=== PATIENT | male | born 1990 | race Caucasian/White ===

== ENCOUNTER 2025-01-31 12:54 | Outpatient (REF) | payer MEDICAID, SELFPAY | END 2025-01-31 12:55 | disposition home or self-care (01) | LOC: HO.HHCLNP 12:54 | PROVIDERS: Visit Provider Internal Medicine Geriatric Medicine | DX: Z13.89 Encounter for screening for other disorder (principal) | CPT/HCPCS: 87086 ==

== ENCOUNTER 2025-02-14 10:52 | Outpatient (REF) | payer MEDICAID, SELFPAY ==
--- OUTSIDE RECORDS SUMMARY | 2025-02-14 12:24 | XMS_ITS | Clinical Summary ---
Author Organization [employer] Address [address] [place] [address] [address] [place] [address] Care Team Providers Care Special Education Administrator Name Role Phone Kurt Finnegan MD Primary Care Provider Allergies No known active allergies Medications ketoconazole (NIZOral) 2 % cream Apply topically Once per day. 30 g 5 Active ofloxacin (Ocuflox) 0.3 % ophthalmic solution Administer 1 drop into the left eye 4 times daily. 5 mL 5 Active prednisoLONE acetate (Pred-Forte) 1 % ophthalmic suspensionIndi cations:Foreig n body of left cornea, subsequent encounter Administer 1 drop into the left eye 2 times daily. Shake before using. Wait 5 minutes between different drops. 5 mL 5 Active tamsulosin (Flomax) 0.4 MG 24 hr capsuleIndicat ions:Lower urinary tract symptoms (LUTS) Take 1 capsule (0.4 mg) by mouth Once per day. 30 capsule 5 Active erythromycin (Romycin) 5 MG/GM ophthalmic ointment Apply to left eye every 6 (six) hours for 10 days. Apply Amount per Dose: 0.25 inch (~0.5 cm) per dose. 3.5 g 5 01/18/20 25 Discontinu ed(Therapy completed) acetaminophen (Tylenol 8 Hour) 650 MG ER tablet Take 1 tablet (650 mg) by mouth every 8 (eight) hours if needed for mild pain for up to 10 days. Do not crush, chew, or split. 30 tablet 01/20/20 25 Active Problems Problem Noted Date Diagnosed Date Tinea corporis 01/09/2025 Assessment & Plan (01/09/2025 7:07 PM EDT): Area clean and dry, avoid excessive perspiration during the summer months, recommended to cool down with towels or cold water. Use ketoconazole cream once to twice daily to affected areas Follow-up with PCP Left corneal abrasion 01/09/2025 Assessment & Plan (01/09/2025 7:10 PM EDT): Unable to complete eye exam with fluorescein due to patient's significant photophobia and eye pain. We did profuse eye lavage with a sterilized water and recommended to do with 3-4 times daily He will apply ophthalmic antibiotic ointment after each lavage and cover with an eye patch which was provided for him Referral to eye clinic, will call back to see if he can be seen RAVI I gave him small Rx for tramadol to take as needed, no more than 3 times daily and for the next 2 days to help him with eye pain and sleeping. He understand that this is not a long-term solution. Advised to go to ED or to the nearest eye clinic if symptoms do not improve within the next 2 or 3 days. 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 Encounters Date Type Department Care Team Description 02/01/2025 Orders Only [facility] MEDICINE [address] [place] [address] Name, MD Jovanni 01/31/2025 7:40 PM EDT Office Visit [facility] WALK-IN CENTER [address] [place] [address] Name, MD Jovanni Lower urinary tract symptoms (LUTS) (Primary Dx) 01/31/2025 Travel 01/17/2025 10:00 AM EDT Office Visit [facility] OPTOMETRY [address] [place] [address] Phil, Meena, OD Foreign body of left cornea, subsequent encounter (Primary Dx) 01/12/2025 9:00 AM EDT Office Visit [facility] OPTOMETRY [address] [place] [address] Orlando Villarrealn, OD Foreign body of left cornea, subsequent encounter (Primary Dx) 01/12/2025 Travel 01/11/2025 Telephone [facility] CHC MED & PEDS [address] [place], [place] [phone] Kurt Finnegan MD Appointment Request 01/10/2025 10:00 AM EDT Office Visit [facility] OPTOMETRY [address] [place] [address] Orlando Villarrealn, OD Corneal foreign body, left, initial encounter (Primary Dx) 01/10/2025 Travel 01/10/2025 Telephone [facility] WALK-IN CENTER [address] [place] [address] Jackie Kline MD 01/09/2025 6:00 PM EDT Office Visit [facility] WALK-IN CENTER [address] [place] [phone] Jackie Kline MD Abrasion of left cornea, initial encounter (Primary Dx); Tinea corporis 01/09/2025 Travel 11/17/2024 Population Health Risk Score [facility] () [address] [id number] Provider, Population Health Generic from Last 3 Months Social History Tobacco Use Types Packs/Day Years Used Date Smoking Tobacco: Never Passive Smoke Exposure: Never Smokeless Tobacco: Never Tobacco Cessation:Counseling Given: Not Answered Sex and Gender Information Value Date Recorded Sex Assigned at Male 07/06/2022 10:21 AM EDT Legal Sex Male 10:21 AM EDT Gender Identity Male 07/06/2022 10:21 AM EDT Sexual Orientation Straight 01/09/2025 6: 45 PM EDT Last Filed Vital Signs Vital Sign Reading Time Taken Comments Blood Pressure 125/75 01/31/2025 7:32 PM EDT Pulse 78 01/31/2025 7:32 PM EDT Temperature 37.1 ??C (98.8 ??F) 01/09/2025 6:28 PM ED T Respiratory Rate 16 01/31/2025 7:32 PM EDT Oxygen Saturation 97% 01/09/2025 6:28 PM EDT Inhaled Oxygen Concentration - - Weight 90.6 kg (199 lb 12.8 oz) 01/31/2025 7:32 PM EDT Height 175.3 cm (5' 9 ) 01/31/2025 7:32 PM EDT Body Mass Index 29.51 01/31/2025 7:32 PM EDT Plan of Treatment Health Maintenance Due Date Last Done Comments Depression Screening 1991 HIV Screening 1991 SDOH Screening 1991 Disability Screening 1991 Alcohol/Substance Use Screening 2003 Family Planning (PISQ) 2006 Hepatitis C Screening 2009 COVID-19 Vaccine ( season) 2024 10/08/2021, 09/10/2021 Influenza Vaccine (Season Ended) 2025 08/25/2021, 05/22/2013, 05/26/2010, Additional history exists Tobacco Screening 01/18/2026 01/18/2025 DTaP/Tdap/Td Vaccines (9 - Td or Tdap) 08/01/2032 08/01/2022, 04/05/2017, 04/19/2008, Additional history exists Zoster Vaccines (1 of 2) 2041 RSV Patients and Patients Aged 60 years or older (1 - 1-dose 75+ series) 2066 HIB Vaccines Completed 05/22/1992, 08/06, 1991, Additional history exists Hepatitis B Vaccines Completed 03/07/1996, 08/02/1995, 06/28/1995 IPV Vaccines Completed 03/07/1996, 08/07, 1991, Additional history exists Meningococcal Vaccine Completed 04/19/2008 HPV Vaccines Aged Out No longer eligi ble based on patient's age to complete this topic Hepatitis A Vaccines Aged Out No long er eligible based on patient's age to complete this topic Meningococcal B Vaccine Aged Out No l onger eligible based on patient's age to complete this topic Pneumococcal Vaccine: Pediatrics (0 to 5 Years) and At-Risk Patients (6 to 49) Years) Aged Out No longer eligible based on patient's age to complete this topic RSV under 20 months Aged Out No longe r eligible based on patient's age to complete this topic Rotavirus Vaccines Aged Out No longer eligible based on patient's age to complete this topic Procedures Procedure Name Priority Date/Time Associated Diagnosis Comments CANCELLED URINE Routine 02/01/2025 12:00 AM EDT POCT GLYCATED HEMOGLOBIN, TOTAL Routine 01/31/2025 7:59 PM EDT Lower urinary tract symptoms (LUTS) POCT GLUCOSE Routine 01/31/2025 7:59 PM EDT Lower urinary tract symptoms (LUTS) POCT URINALYSIS DIPSTICK Routine 01/31/2025 7:43 PM EDT Lower urinary tract symptoms (LUTS) FOREIGN BODY REMOVAL, CORNEA - OS - LEFT EYE Routine 01/10/2025 10:12 AM EDT Corneal foreign body, left, initial encounter from Last 3 Months Results * Cancelled Urine (02/01/2025 12:00 AM EDT) Cancelled Urine SEE NOTE [facility] Comment:THE FOLLOWING TESTS WERE CANCELLED: URINE CULTUREREASON: UNLABELED 02/01/2025 02/01/2025 us Jovanni Name HISTORICAL/NON ORDERABLE LABS Fi nal Result [facility] [address] [place] [phone] * POCT HGB A1C (01/31/2025 7:59 PM EDT) Hemoglobin A1C 5.2 4.0 - 6.0 % Blood 01/31/2025 7:59 PM EDT us Jovanni Name POINT OF CARE TEST ENTER/EDIT OR DERABLES Final Result * POCT Glucose (01/31/2025 7:59 PM EDT) Glucose Blood, POC 76 60 - 200 mg/dL Blood Capillary blood specimen / Unknown 01/31/2025 7:59 PM EDT us Jovanni Cespedes MD POINT OF CARE TEST ENTER/EDIT OR DERABLES Final Result * POCT Urinalysis (01/31/2025 7:43 PM EDT) Color, UA Light Yellow Clarity, UA Clear Glucose, UA Negative Bilirubin, UA Negative Ketones, UA Negative Spec Grav, UA 1.020 Blood, UA Negative Negative, None Detected pH, UA 5.5 Protein, UA Negative Urobilinogen, UA 0.2 Leukocytes, UA Negative Negative, Rare, Trace Nitrite, UA Negative Negative, None Detected Urine 01/31/2025 7:43 PM EDT us Jovanni Cespedes MD POINT OF CARE TEST ENTER/EDIT OR DERABLES Final Result * Foreign Body Removal, Cornea - OS - Left Eye (01/10/2025 10:12 AM EDT) Narrative Meena Vlilarreal, OD - 01/10/2025 10:12 AM EDT CORNEAL FOREIGN BODY REMOVAL Procedure: Removal of corneal foreign body Eye: ??Left CPT Code: Corneal foreign body removal 27676 Eye: ??Left Surgeon: Nadya Hayes, OPT 4 and Meena Villarreal, OD Diagnosis: ??Foreign body in cornea Eye: Left Pre-Procedure Care: Consent was obtained. The procedure and risks were explained in detail. Questions were encouraged and answered. Correct patient identified. Correct side and site confirmed. Anesthesia: Topical Proparacaine 0.5% HISTORY & INDICATIONS: The patient has been diagnosed with a corneal foreign body in the left eye. The goals, risks and alternatives of removal have been extensively reviewed. ??The patient wishes to proceed with removal in an attempt to decrease the risk of infection, inflammation, and discomfort. PROCEDURE IN DETAIL: After informed consent was obtained, the patient was seated at the slit lamp and topical anesthesia was instilled. The corneal foreign body was removed with a 25G Safety Hypodermic needle. The patient was prescribed Ofloxacin 0.3% antibiotic eye drops 4 times per day in the left eye. The patient left the office suite in excellent condition, and there were no intraoperative complications. The patient will return in 2 days for monitoring, sooner with any worsening of his condition. Meena Villarreal OD OPHTH CLINIC PROCEDURES Final Result from Last 3 Months Insurance [facility] C3 Care Teams Special Education Administrator Relationship Specialty Start Date End Date Kurt Finnegan MD [address] [place] [phone] PCP - General Internal Medicine 09/06/18
[2025-02-14 13:54] LABS: Anion Gap 9 (12-20); Blood Urea Nitrogen 15 mg/dL (9-16); Calcium 9.1 mg/dL (8.4-10.2); Carbon Dioxide 28 mmol/L (22-29); Chloride 106 mmol/L (96-108); Estimated Glomerular Filt Rate > 60; Glucose Random 95 mg/dL (60-115); Potassium 4.1 mmol/L (3.3-5.1); Sodium 139 mmol/L (135-145)
[2025-02-14 14:15] LABS: Prostate Specific Antigen 0.24 ng/mL (<0.05-4.0)
== END 2025-02-14 10:53 | disposition home or self-care (01) ==
LOC: HO.HHCL 10:52
PROVIDERS: Visit Provider Internal Medicine Geriatric Medicine
DX: R35.0 Frequency of micturition (principal)
CPT/HCPCS: 36415; 80048; 84153; 87086